=== PATIENT | female | born 1965 | race Two or more races ===

== ENCOUNTER 2024-10-27 15:33 | Emergency (ER) | payer OTHER ==
[~2024-10-27] VITALS: Ht 160 cm; Wt 63.5 kg
[2024-10-27] MEDS ORDERED: LEVOTHYROXINE25 MCG (15:48)
[2024-10-27] MEDS ORDERED: KETOROLAC TROMETHAMINE 30 MG VIAL IM ONE (18:30)
== END 2024-10-27 20:37 | disposition home or self-care (01) ==
LOC: ER 15:36
DX: S82.092A Other fracture of left patella, initial encounter for closed fracture (principal); W19.XXXA Unspecified fall, initial encounter; Y93.89 Activity, other specified; Y92.098 Other place in other non-institutional residence as the place of occurrence of the external cause; M25.569 Pain in unspecified knee
CPT/HCPCS: 73560; 96372; 99283; J1885